=== PATIENT | male | born 1990 | race African-American/Black ===

== ENCOUNTER 2017-01-31 12:27 | Day surgery (SDC) | payer BC ==
[~2017-01-31] VITALS: Ht 182.9 cm; Wt 185.5 kg
[~2017-01-31 12:27] MED LIST: ALBUTEROL SULF8.5 GM IH; BENTYL10 MG PO; ERGOCALCIF50000 UNIT PO; HYCODAN SYRUP480 ML PO; LIORESAL10 MG PO; MELOXICAM15 MG PO; MOTRIN600 MG PO; MOTRIN800 MG PO; NAPROSYN500 MG PO; NOHOMEMEDS; OXAYDO5 MG PO; PREDNISONE20 MG PO; VALIUM5 MG PO; VICODIN,LORT1 TABLET PO; ZANAFLEX2 M1 PO; ZITHROMAX Z-PA250 MG PO; ZOFRAN ODT4 MG PO
== END 2017-01-31 14:51 | disposition home or self-care (01) ==
LOC: PAIN 12:27 → SDC 13:00 → PAIN 13:00
DX: M47.26 Other spondylosis with radiculopathy, lumbar region (principal); E66.01 Morbid (severe) obesity due to excess calories; F17.200 Nicotine dependence, unspecified, uncomplicated; M79.1 Myalgia; G47.30 Sleep apnea, unspecified
CPT/HCPCS: J1030; J2250; J3010; S0020

== ENCOUNTER 2017-02-07 10:05 | Day surgery (SDC) | payer BC ==
[~2017-02-07] VITALS: Ht 182.9 cm; Wt 185.5 kg
== END 2017-02-07 12:00 | disposition home or self-care (01) ==
LOC: PAIN 10:05 → SDC 10:30 → PAIN 10:30
DX: M47.26 Other spondylosis with radiculopathy, lumbar region (principal); E66.01 Morbid (severe) obesity due to excess calories; Z79.891 Long term (current) use of opiate analgesic; F17.210 Nicotine dependence, cigarettes, uncomplicated; Z68.43 Body mass index [BMI] 50.0-59.9, adult
CPT/HCPCS: J1030; J2250; J3010; S0020

== ENCOUNTER 2017-03-26 22:40 | Emergency (ER) | payer BC ==
[~2017-03-26] VITALS: Ht 182.9 cm; Wt 189.7 kg
[2017-03-26 23:02] VITALS: BP 147/95
== END 2017-03-27 01:05 | disposition left against medical advice (07) ==
LOC: EME 22:40
DX: R11.2 Nausea with vomiting, unspecified (principal); Z53.21 Procedure and treatment not carried out due to patient leaving prior to being seen by health care provider

== ENCOUNTER 2018-04-12 14:53 | Emergency (ER) | payer BC ==
[~2018-04-12] VITALS: Ht 185.4 cm; Wt 196.3 kg
[2018-04-12] MEDS ORDERED: IBUPROFEN800 MG PO (18:15)
[2018-04-12] MEDS ORDERED: FLEXERIL10 MG PO (18:15)
[2018-04-12] MEDS ORDERED: PERCOCET 5/31 TABLET PO (18:19)
[2018-04-12] MEDS ORDERED: OXAYDO5 MG PO (18:39)
[2018-04-12 18:57] VITALS: BP 123/77
== END 2018-04-12 18:58 | disposition home or self-care (01) ==
LOC: EME 14:53
DX: M51.26 Other intervertebral disc displacement, lumbar region (principal); X58.XXXA Exposure to other specified factors, initial encounter; Y93.67 Activity, basketball; G89.29 Other chronic pain; M54.9 Dorsalgia, unspecified; G47.30 Sleep apnea, unspecified
CPT/HCPCS: 72131; 99281; 99285; J1885; J3010